=== PATIENT | male | born 1945 | race Caucasian/White ===

== ENCOUNTER 2018-12-05 11:30 | Inpatient (IN) | payer OTHER ==
[~2018-12-05] VITALS: Ht 152.4 cm; Wt 72.6 kg
[2018-12-05 11:31] VITALS: BP 171/106
[2018-12-05 12:03] LABS: ABSOLUTE NEUTROPHILS 9.2 thou/uL (1.4-8.2); BASOPHILS 0.5 % (0.0-2.0); EOSINOPHILS 1.3 % (0.0-3.0); HEMATOCRIT 42.3 % (42.0-52.0); HEMOGLOBIN 14.4 gm/dL (14.0-18.0); LYMPHOCYTES 9.7 % (24.0-44.0); MCH 32.4 pg (26.0-34.0); MCHC 34.2 g/dL (28.0-37.0); MCV 94.9 fL (80.0-100.0); MONOCYTES 10.9 % (1.0-8.0); PLATELET COUNT 197 thou/uL (150-400); POLYS 77.6 % (36.0-66.0); RBC 4.45 mil/uL (4.50-6.00); RDW 13.8 % (10.5-14.5); WBC 11.8 thou/uL (4.0-11.0)
[2018-12-05 12:14] LABS: URINE BILIRUBIN NEGATIVE (Negative); URINE BLOOD 2+ (Negative); URINE CLARITY CLEAR; URINE COLOR YELLOW; URINE GLUCOSE-RANDOM* NEGATIVE (Negative); URINE KETONES NEGATIVE (Negative); URINE LEUKOCYTES-REFLEX NEGATIVE (Negative); URINE NITRITE-REFLEX NEGATIVE (Negative); URINE PROTEIN (DIPSTICK) NEGATIVE (Negative); URINE UROBILINOGEN 0.2 E.U./dl (0.2-1.0)
[2018-12-05 12:17] LABS: ALBUMIN 3.7 g/dL (3.4-5.0); ANION GAP 11 mmol/L (7-16); BUN 30 mg/dL (7-18); CHLORIDE 100 mmol/L (98-107); CO2 23 mmol/L (21-32); CREATININE 2.4 mg/dL (0.7-1.3); GLUCOSE 164 mg/dL (74-106); POTASSIUM 4.4 mmol/L (3.5-5.1); SGOT 26 U/L (15-37); SGPT 23 U/L (30-65); SODIUM 134 mmol/L (136-145); TOTAL BILIRUBIN 0.6 mg/dL (<0.1-1.0); TOTAL PROTEIN 7.4 g/dL (6.4-8.2); TROPONIN-I <0.06 ng/mL (<0.06)
[2018-12-05 12:22] LABS: BACTERIA-REFLEX 1-9 Few /HPF (None Seen); CASTS None Seen /LPF (None Seen); CRYSTALS None Seen /LPF (None Seen); SQUAMOUS None Seen /LPF (0-3); URINE RBC 3-10 Few /HPF (0-2); URINE WBC-REFLEX 0-5 Rare /HPF (0-5)
[2018-12-05] MEDS ORDERED: HYTRIN 2MG CAPSU2 M1 PO (12:41)
[2018-12-05] MEDS ORDERED: PROSCAR 5MG TABL5 MG PO (12:41)
[2018-12-05 12:59] LABS: CALCIUM 9.6 mg/dL (8.5-10.1)
[2018-12-05 14:04] VITALS: BP 153/92
[2018-12-05 14:27] VITALS: BP 145/90; BP 147/85
[2018-12-05 16:30] VITALS: BP 127/69
--- NOTE | 2018-12-05 16:31 | NUR ---
73 YO MALE ADMITTED BY CART FROM ER, A&OX4, IV INFUSING NS IN R FA, GARZON IN PLACE. DENIES ANY N/V OR PAIN AT THIS TIME.SPOUSE AD BEDSIDE. NS STARTED AT /HR, ORIENTED PT TO ROOM CALL LIGHT.
[2018-12-06 03:43] VITALS: BP 129/72
--- NOTE | 2018-12-06 05:23 | NUR ---
PT ALERT AND ORIENTED. GARZON TO D/D WITH LARGE AMOUNTS OT LIGHT YELLOW URINE-SOME SEDIMENTS NOTED.PT WALKED THE HALLWAYS SEVERAL TIMES IN THE NIGHT. VSS. NO FURTHER COMPLAINS.
[2018-12-06 08:57] LABS: HEMATOCRIT 38.4 % (42.0-52.0); HEMOGLOBIN 12.9 gm/dL (14.0-18.0); MCH 31.9 pg (26.0-34.0); MCHC 33.5 g/dL (28.0-37.0); MCV 95.2 fL (80.0-100.0); RBC 4.03 mil/uL (4.50-6.00); RDW 13.7 % (10.5-14.5); WBC 10.1 thou/uL (4.0-11.0)
[2018-12-06 09:10] LABS: CALCIUM 9.6 mg/dL (8.5-10.1); CREATININE 1.2 mg/dL (0.7-1.3); MAGNESIUM 1.8 mg/dL (1.8-2.4); POTASSIUM 4.3 mmol/L (3.5-5.1)
--- NOTE | 2018-12-06 11:26 | EKG ---
[address] [place] [address] ELECTROCARDIOGRAM REPORT Name: NATASHA VANEGAS Room #: 423-1 ADM IN M.R.#: [id number] ������������������ Admission: 12/05/18 ������������������ Attend Phys: Nona Phoenix Discharge: ������������������ Date of : 45 Report #: [id number] ����������������������������������������������������������������� [id number] THIS REPORT FOR: //name// [facility] ED Test Date: 2018-12-05 Test Time: 12:28:15 Pat Name: NATASHA VANEGAS Department: Room: [facility] Gender: M Afternoon Babysitter: AMANDA : 1945 Requested By: Kaleb Mosquera Order Number: [id number] MD: Christiano Freeman Measurements Intervals [place] Rate: 78 P: 43 SD: 159 QRS: -2 QRSD: 98 T: 37 QT: 379 QTc: 432 Interpretive Statements Sinus rhythm left atrial enlargement Nonspecific ST-T wave abnormalities No previous ECG available for comparison Electronically Signed On 12-06-2018 11:26:32 BANDMILL OPERATOR by Christiano Freeman [email or web address] ��������������������������������������������� <ELECTRONICALLY SIGNED> ���������������������������������������� By: Christiano Freeman MD ��������������������������������������������� 12/06/18 1126 1228 1228 Christiano Freeman MD /DAVID
--- NOTE | 2018-12-06 13:22 | NUR ---
ASSUMED CARE OF PT AT 0700. ASSESSMENT COMPLETED. A&O,X4. DENIES PAIN, N/V/D. C/O URINARY RETENTION, GARZON CATHETER IN PLACE DRAINING YELLOW URINE. HX BPH. PT STATES NO OTHER CONCERNS. PT UP AD JOSIAH, WALKING IN HALLWAYS. WAITING FOR DISCHARGE ORDERS.
[2018-12-06 13:36] VITALS: BP 129/72
--- NOTE | 2018-12-06 14:18 | NUR ---
NEW DISCHARGE ORDERS. D/C INFORMATION DISCUSSED WITH PT AND AT BEDSIDE. NO NEW SCRIPTS GIVEN. GARZON CATHETER IN PLACE, CHANGED TO LEG BAG PER REQUEST. PT CHANGED INTO PERSONAL CLOTHES AND HAD BELONGINGS WITH HIM. PT REFUSED WHEELCHAIR ESCORT. PT LEFT THE UNIT AT 14:14 IN STABLE CONDITION.
== END 2018-12-06 14:14 | disposition home or self-care (01) | DRG 699 ==
LOC: ER 11:30 → 4E 13:40 → EROBS 13:40 → 4E 14:32
PROVIDERS: Internal Medicine; Physician Assistant; ADMIT Family Medicine
DX: N13.9 Obstructive and reflux uropathy, unspecified (principal); N17.9 Acute kidney failure, unspecified; I10 Essential (primary) hypertension; N40.1 Benign prostatic hyperplasia with lower urinary tract symptoms; R33.8 Other retention of urine; Z28.21 Immunization not carried out because of patient refusal; Z79.899 Other long term (current) drug therapy
CPT/HCPCS: 10084